=== PATIENT | male | born 1960 | race Caucasian/White ===

== ENCOUNTER → 2017-09-29 | Outpatient (CLI) | payer BC ==
--- NOTE | 2017-09-29 09:46 | CT ---
EXAMINATION TYPE: CT abdomen pelvis w con DATE OF EXAM: 09/29/2017 COMPARISON: 02/06/2016 and 04/06/2014 HISTORY: Follow up to bladder CA. History of umbilical hernia repair and prostatectomy. CT DLP: 2127 mGycm Automated exposure control for dose reduction was used. TECHNIQUE: Helical acquisition of images was performed from the lung bases through the pelvis. CONTRAST: Performed with Oral Contrast and with IV Contrast, patient injected with 100 mL of Omnipaque 300. FINDINGS: LUNG BASES: Lingular pleural-parenchymal scarring is seen. LIVER/GB: There is a 3 mm hypoattenuating lesion within the left hepatic lobe on series 3 image 16, r etrospectively unchanged dating back to 04/06/2014. Although this is too small to accurately characteri ze stability back to 2013 is most compatible with a benign cyst. No new suspicious hepatic lesions ar e seen. Hepatic parenchyma enhances otherwise homogeneously. Numerous gallstones and layering milk of calcium are seen within the gallbladder, similar to prior ex ams. PANCREAS: No significant abnormality is seen. No ductal dilatation. SPLEEN: No significant abnormality is seen. No splenomegaly. ADRENALS: No significant abnormality is seen. No thickening or nodularity. KIDNEYS: There is right cortical renal atrophy, new from the exam of 04/06/2014. There is mild right hy dronephrosis and moderate bilateral ureteral dilatation with both ureters extending into a right lowe r quadrant ileal conduit. VASCULATURE: There is mild dilatation of the abdominal aorta, infrarenal in location extending over 6.9 cm measuring 3.1 x 3.0 cm in anterior posterior by transverse dimension. Abdominal aorta contains moderate calcific and noncalcific plaquing. ADENOPATHY: No greater than 1 cm short axis lymph nodes are seen within the abdomen or pelvis. REPRODUCTIVE ORGANS: Prostate gland is surgically absent. URINARY BLADDER: The urinary bladder is surgically absent. No residual soft tissue density is seen w ithin the surgical bed. Right lower quadrant ileal conduit with external stoma is seen. There is rede monstration of a mesenteric fat filled parastomal hernia with a 1.1 cm neck. OSSEOUS STRUCTURES: Punctate bone islands are noted within the left acetabulum and right femur, unch anged from the prior of 2013. No new suspicious osseous lesions are seen. Mild multilevel degenerativ e changes of the thoracolumbar spine are noted. BOWEL: No significant abnormality is seen. Appendix is partially air-filled, partially contrast fill ed, and within normal limits of size. Numerous sigmoid diverticula are seen without pericolonic fat s tranding. Moderate amount retained stool is seen throughout the colon. No evidence of bowel dilation. IMPRESSION: 1. NO EVIDENCE OF VISCERAL METASTASIS, OR OSSEOUS METASTASIS, OR ADENOPATHY WITHIN THE ABDOMEN OR PEL VIS. 2. REDEMONSTRATION OF A MESENTERIC FAT FILLED PARASTOMAL HERNIA. 3. MODERATE URETERAL DILATATION AND MILD RIGHT HYDRONEPHROSIS WITH RIGHT CORTICAL RENAL THINNING. 4. REDEMONSTRATION OF NUMEROUS GALLSTONES AND LAYERING MILK OF CALCIUM.
== END | disposition home or self-care (01) ==
LOC: RADCTMAIN 08:30
PROVIDERS: ATTEND Urology
DX: K43.5 Parastomal hernia without obstruction or gangrene (principal); N13.30 Unspecified hydronephrosis; N28.82 Megaloureter; K80.20 Calculus of gallbladder without cholecystitis without obstruction
CPT/HCPCS: 74177; Q9967

== ENCOUNTER → 2020-09-20 | Outpatient (CLI) | payer BC ==
--- NOTE | 2020-09-20 11:03 | CT ---
EXAMINATION TYPE: CT abdomen pelvis w con DATE OF EXAM: 09/20/2020 COMPARISON: 09/29/2017 HISTORY: 60-year-old male R31.1, Follow up bladder cancer per patient TECHNIQUE: Contiguous axial scanning of the abdomen and pelvis following administration of 100 ml Iso carrie 300 IV contrast. Delayed images through the kidneys and coronal/sagittal reconstructions perform ed. CT DLP: 2079.2 mGycm Automated exposure control for dose reduction was used. FINDINGS: Heart normal size without pericardial effusion. RCA coronary artery calcifications are demonstrated. Some strandy atelectasis at the inferior lingula. No pleural effusion. Small hiatal hernia. Liver borderline in size at 17.7 cm. There may be mild fatty infiltration. Portal venous system is pa tent. Gallbladder mildly hydropic at 5.6 cm wide with redemonstrated internal high density material, likely gallstones. There may be some layering high-density sediment as well versus a platelike calculus. Adrenal glands, spleen, and pancreas appear within normal limits. Mild fusiform aneurysm infrarenal abdominal aorta measuring up to 3.5 cm, not significantly changed. New measurements are made on the prior 09/29/2017 exam for consistency. Crescentic mural-based plaque/ thrombus along the left lateral wall. Redemonstrated is is the atretic right kidney with further cortical loss and progressively smaller si ze. Multiple cortical defects in the left kidney seem to have progressed from 2018. There is mild urothel ial thickening and slightly patulous left ureter. No latonya hydronephrosis. There is excretion from th e left kidney on the delayed kidney images. Prior right midabdominal urostomy with ileal conduit. Fat-containing parastomal hernia slightly large r at 6.5 cm versus 5.6 cm, previously. No dilated small bowel, free fluid, free air. No mesenteric or retroperitoneal lymphadenopathy. Oral contrast progressed to the splenic flexure of the colon. Redundant sigmoid colon. Mid to distal sigmoid diverticulosis. Bladder has been resected previously. No abnormal fluid collection the pelvis or pelvic lymphadenopat hy. Bones: Small bone islands about the hips are unchanged. No osseous destructive process. IMPRESSION: 1. PREVIOUS BLADDER RESECTION. RIGHT MID ABDOMINAL OSTOMY WITH ILEOCONDUIT REDEMONSTRATED. THE FAT-CO NTAINING PARASTOMAL HERNIA IS SLIGHTLY LARGER AT 6.5 CM VERSUS 5.6 CM, PREVIOUSLY. NO EVIDENCE FOR ME TASTATIC DISEASE. 2. PROGRESSIVE, NOW SEVERE ATROPHY OF THE RIGHT KIDNEY. 3. LEFT KIDNEY SHOWS PROGRESSIVE NUMBER OF CORTICAL DEFECTS SUGGESTING MULTIPLE INTERVAL INFECTIOUS O R VASCULAR INSULTS. THERE IS MILD UROTHELIAL THICKENING IN THE LEFT RENAL COLLECTING SYSTEM AND THE L EFT URETER IS SLIGHTLY PATULOUS. CORRELATE TO EXCLUDE URINARY TRACT INFECTION. NO LATONYA HYDRONEPHROSI S. 4. SMALL HIATAL HERNIA, BORDERLINE SIZE LIVER, SIMILAR LAYERING SEDIMENT OR PLATELIKE CALCULUS IN THE GALLBLADDER, MID TO DISTAL SIGMOID DIVERTICULOSIS, AND stable 3.5 CM AAA.
== END | disposition home or self-care (01) ==
LOC: RADCTMAIN 07:22
PROVIDERS: ATTEND Urology
DX: K43.5 Parastomal hernia without obstruction or gangrene (principal); N26.1 Atrophy of kidney (terminal); N39.8 Other specified disorders of urinary system; K44.9 Diaphragmatic hernia without obstruction or gangrene; K57.30 Diverticulosis of large intestine without perforation or abscess without bleeding; I71.4 Abdominal aortic aneurysm, without rupture; D49.4 Neoplasm of unspecified behavior of bladder
CPT/HCPCS: 74177; Q9967

== ENCOUNTER → 2023-12-18 | Outpatient (CLI) | payer MEDICARE, BC ==
[2023-12-18 11:12] LABS: African American GFR (CKD) 28 (>60 ml/min/1.73 sqM); Blood Urea Nitrogen 35 mg/dL (9-20); Non-African American GFR(CKD) 24 (>60 ml/min/1.73 sqM)
--- NOTE | 2023-12-18 13:28 | CT ---
EXAMINATION TYPE: CT abdomen pelvis wo con DATE OF EXAM: 12/18/2023 COMPARISON: 09/20/2020 HISTORY: 63-year-old male Malignant neoplasm of bladder. CT DLP: 1250 mGycm. Automated exposure control for dose reduction was used. TECHNIQUE: Contiguous axial scanning of the abdomen and pelvis without IV contrast. Coronal and sagit holli reconstructions performed. FINDINGS: Heart normal size without pericardial effusion. RCA coronary artery calcifications are present. Bandl chasity scarring inferior lingula. No pleural effusion. Small hiatal hernia. Similar gallbladder calcifications, probable platelike calculi measuring up to 4.0 cm. Mild hydrops a t 5.7 cm wide but without any surrounding gallbladder inflammation. Fusiform infrarenal AAA unchanged at 3.5 cm wide. Adrenal glands, spleen, and pancreas show no gross abnormal body by noncontrast CT. Redemonstrated atrophic right kidney. Redemonstrated multiple cortical defects of the left kidney. Similar mildly patulous left renal colle cting system and left ureter. Redemonstrated right mid abdominal diverting urostomy with ileal conduit. Small fatty parastomal ishan ia 7.4 cm wide versus 6.5 cm, previously. No dilated small bowel, free fluid, or free air. No mesenteric or retroperitoneal lymphadenopathy. Mild overall stone burden. Mid to distal sigmoid diverticulosis with redundant sigmoid colon. No becki colonic inflammatory change. Patient status post bladder resection. No abnormal fluid collection in the pelvis or pelvic lymphaden opathy. IMPRESSION: 1. Status post bladder resection with right mid abdominal diverticulum urostomy with ileal conduit. 2. Similar atrophic right kidney and similar mild patulous left renal collecting system and left ure ter compared to 2020, likely chronic changes. 3. The multiple cortical defects of the left kidney remain unchanged. 4. Redemonstrated large platelike calculus measuring up to 4 cm in the gallbladder and infrarenal AA A at 3.5 cm. Small hiatal hernia.
== END | disposition home or self-care (01) ==
LOC: RADCTMAIN 10:32
PROVIDERS: ATTEND Urology
DX: N26.1 Atrophy of kidney (terminal) (principal); K80.20 Calculus of gallbladder without cholecystitis without obstruction; C67.9 Malignant neoplasm of bladder, unspecified; I71.43 Infrarenal abdominal aortic aneurysm, without rupture; K44.9 Diaphragmatic hernia without obstruction or gangrene; N28.89 Other specified disorders of kidney and ureter; Z98.890 Other specified postprocedural states
CPT/HCPCS: 36415; 74176; 82565; 84520